=== PATIENT | female | born 1975 | race Caucasian/White ===

== ENCOUNTER 2020-10-18 20:46 | Emergency (ER) | payer OTHER ==
[~2020-10-18 20:46] MED LIST: 3IN1 COMMODE; METOPROLOL SUCC50 MG PO; TOPROL XL 25MG25 MG PO
[2020-10-18 21:21] LABS: BASOPHIL 0.1 % (0-2); EOSINOPHIL 0.8 % (0-5); HCT 39.8 % (37.0-47.0); HGB 12.8 g/dl (12.5-16.0); LYMPHOCYTE 25.7 % (15-48); MCH 29.7 pg (25.0-31.0); MCHC 32.2 g/dL (32.0-36.0); MCV 92.3 fL (78.0-100.0); MONOCYTE 9.7 % (0-12); MPV 10.2 fL (6.0-9.5); NEUTROPHIL 63.5 % (41-80); NRBC 0; PLT 212 K/uL (150-400); RBC 4.31 M/uL (4.20-5.40); RDW 13.2 % (11.5-14.0)
[2020-10-18 21:32] LABS: INR 1.04 (0.9-1.2); PROTHROMBIN TIME 12.9 SECONDS (11.4-13.6); PTT 25.8 SECONDS (22.2-34.7)
[2020-10-18 21:39] LABS: ALBUMIN 3.6 g/dL (3.4-5.0); ALKALINE PHOSHATASE 48 U/L (46-116); ALT 33 U/L (14-59); AST 24 U/L (15-37); BILIRUBIN - TOTAL 0.2 mg/dL (0.2-1.0); BUN 14 mg/dL (7-18); BUN/CREAT RATIO (CALC) 15.4 RATIO; CHLORIDE 103 mmol/L (98-107); CO2 (BICARBONATE) 28 mmol/L (21-32); CPK 437 U/L (26-192); CREATININE 0.91 mg/dL (0.51-0.95); GLOBULIN (CALCULATION) 3.3 g/dL; GLUCOSE 94 mg/dL (74-106); TOTAL PROTEIN 6.9 g/dL (6.4-8.2)
[2020-10-18 21:49] LABS: BILIRUBIN NEGATIVE (NEGATIVE); BLOOD NEGATIVE Ery/uL (NEGATIVE); CLARITY CLEAR (CLEAR); COLOR YELLOW (YELLOW); GLUCOSE (U) NORMAL (NORMAL); LEUKOCYTES NEGATIVE Leu/uL (NEGATIVE); NITRITE NEGATIVE (NEGATIVE); PROTEIN NEGATIVE (NEGATIVE); UROBILINOGEN 0.2 mg/dL (0.2-1.0); pH 6.5 (5.0-9.0)
[2020-10-18 21:53] LABS: AMPHETAMINES NEGATIVE (NEGATIVE); BARBITURATES NEGATIVE (NEGATIVE); ECSTASY (MDMA) NEGATIVE (NEGATIVE); MARIJUANA (THC) NEGATIVE (NEGATIVE); METHADONE NEGATIVE (NEGATIVE); OPIATES NEGATIVE (NEGATIVE); OXYCODONE NEGATIVE (NEGATIVE)
[2020-10-19] MEDS ORDERED: ANTIVERT25 MG PO (02:15)
[2020-10-19] MEDS ORDERED: FIORICET1 EACH PO (02:15)
== END 2020-10-19 02:47 | disposition home or self-care (01) ==
LOC: FER 20:46
PROVIDERS: Emergency Medicine Emergency Medical Services
DX: R42 Dizziness and giddiness (principal); R51.9 Headache, unspecified; U07.1 COVID-19; J45.909 Unspecified asthma, uncomplicated; Z88.6 Allergy status to analgesic agent
CPT/HCPCS: 36415; 70450; 71045; 80053; 80305; 81003; 82550; 83874; 84484; 85025; 85610; 85730; 93005; G0480; Q9967; U0002

== ENCOUNTER 2021-05-08 10:41 | Emergency (ER) | payer OTHER ==
[~2021-05-08 10:41] MED LIST changes: +ANTIVERT25 MG PO; +FIORICET1 EACH PO
[2021-05-08 12:18] LABS: BILIRUBIN NEGATIVE (NEGATIVE); BLOOD NEGATIVE Ery/uL (NEGATIVE); CLARITY CLEAR (CLEAR); COLOR YELLOW (YELLOW); GLUCOSE (U) NORMAL (NORMAL); LEUKOCYTES NEGATIVE Leu/uL (NEGATIVE); NITRITE NEGATIVE (NEGATIVE); PROTEIN NEGATIVE (NEGATIVE); SPECIFIC GRAVITY 1.025 (1.001-1.030); UROBILINOGEN 0.2 mg/dL (0.2-1.0)
[2021-05-08 12:19] LABS: BASOPHIL 0.2 % (0-2); EOSINOPHIL 0.4 % (0-5); HCT 43.8 % (37.0-47.0); HGB 14.4 g/dl (12.5-16.0); LYMPHOCYTE 22.9 % (15-48); MCH 30.1 pg (25.0-31.0); MCHC 32.9 g/dL (32.0-36.0); MCV 91.6 fL (78.0-100.0); MONOCYTE 7.7 % (0-12); MPV 10.1 fL (6.0-9.5); NEUTROPHIL 68.4 % (41-80); NRBC 0; PLT 236 K/uL (150-400); RBC 4.78 M/uL (4.20-5.40); RDW 13.6 % (11.5-14.0); WBC 8.5 K/uL (4.0-10.5)
[2021-05-08 12:46] LABS: BILIRUBIN - TOTAL 0.4 mg/dL (0.2-1.0); BUN/CREAT RATIO (CALC) 22.7 RATIO; CREATININE 0.88 mg/dL (0.51-0.95); GLOBULIN (CALCULATION) 3.6 g/dL; POTASSIUM 4.2 mmol/L (3.5-5.1); TOTAL PROTEIN 7.6 g/dL (6.4-8.2)
== END 2021-05-08 13:18 | disposition home or self-care (01) ==
LOC: FER 10:41
PROVIDERS: Internal Medicine
DX: R10.9 Unspecified abdominal pain (principal); R74.8 Abnormal levels of other serum enzymes; R74.01 Elevation of levels of liver transaminase levels
CPT/HCPCS: 36415; 80053; 81003; 82550; 85025; 99284